=== PATIENT | male | born 1980 | race Caucasian/White ===

== ENCOUNTER → 2016-12-12 | Day surgery (SDC) | payer OTHER ==
[~2016-12-12] VITALS: Ht 185.4 cm; Wt 75.2 kg
[~2016-12-12] MED LIST: ACETAMINOPHEN 500 MG CPLT PO PRN; AMPHOTERICIN B I-OCULAR ONE; ATRO1SOL11 RIGHT EYE; ATROPINE SULFATE 1% OPHT SOLN 2 ML BTL ONE; BALANCED SALT SOLN OPHT IRRIG 15 ML BTL ONE; CHLORHEXIDINE GLUCONATE 2 % 1 PACK (2 CLOTHS) TOPICAL PRN; DEXAMETHASONE SOD PHOS 4 MG/ML VIAL ONE; DIFL200T PO; DO NOT ADM ANY ANTICOAGULANT DRUGS PRN; EPINEPHrine HCL (1:1000) 1 MG/ML VIAL ONE; FAMOTIDINE 20 MG/2 ML VIAL ONE; INSULIN HUMAN REGULAR 1,000 UNITS/10 ML VIAL SQ PRN; LACTATED RINGER'S 1000 ML IV PRN; METOPROLOL TARTRATE 25 MG TAB PO PRN; MIDAZOLAM HCL 2 MG/2 ML VIAL ONE; ONDANSETRON HCL 4 MG/2 ML VIAL IM PRN; ONDANSETRON HCL 4 MG/2 ML VIAL IV PUSH ONE; POVIDONE IODINE 5% (ANTISEPSIS KIT) 4 APPLICATIONS EACH NARE PRN; PROPOFOL 200 MG/20 ML AMP IV ONE; SODIUM CHLORID 0.9% 500 ML IV PRN; STERILE WATER FOR INJ 20 ML VIAL ONE; TOBRAMYCIN/DEXAMETHASONE OPTH OINT 3.5 GM TUBE ONE; TRIAMCINOLONE ACETONIDE/PF 40 MG/ML OPTH VIAL ONE; TROPICAMIDE 1% OPHT SOLN 15 ML BTL ONE; [UNRECOGNIZED DRUG - OTHER] I-OCULAR ONE; ceFAZolin INJ 1,000 MG VIAL ONE; fentaNYL CITRATE 250 MCG/5 ML AMP ONE; oxyCODONE/ACETAMINOPHEN 5 MG/325 MG TAB PO PRN
[2016-12-12 08:30] VITALS: BP 154/96; PULSE 68; RESP 18; TEMP 98.3; O2SAT 99
[2016-12-12] MEDS: TROPICAMIDE 1% OPTH SOLN 2 ML BTL RIGHT EYE SCH ×4 (09:00→09:40)
[2016-12-12] MEDS: PHENYLEPHRINE HCL 2.5% OPTH SOLN 2 ML BTL RIGHT EYE SCH ×3 (09:10→09:40)
[2016-12-12] MEDS: CYCLOPENTOLATE HCL 1% OPHT SOLN 2 ML BTL RIGHT EYE SCH ×3 (09:10→09:40)
[2016-12-12] MEDS: ATROPINE SULFATE 1% OPHT SOLN 5 ML BTL RIGHT EYE SCH ×3 (09:10→09:40)
[2016-12-12 13:39] VITALS: BP 142/86; PULSE 72; RESP 16; TEMP 98.5; O2SAT 99
--- NOTE | 2016-12-13 20:37 | MP ---
cc: TING MACARIO M.D. DATE OF SURGERY: 12/12/2016. 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 OPERATIVE PROCEDURE PERFORMED: A trans pars plana vitrectomy with injection of amphotericin B, right eye. SURGEON: Ting Macario MD. ANESTHESIA: General laryngeal mask anesthesia. INDICATIONS FOR THE PROCEDURE: Mr. Briceño is a 36-year-old gentleman with an approximately one month history of increasing floaters and decreasing vision in his right eye. He was seen back on November 09 for initial evaluation and there was an exudate noted in his macula as well as vitreous cells. There was no diagnostic look to his pictures so he was asked to return in a week to see what the progression was. He did not return until December 09 at which time his vision had dropped in the right eye to 20/100 -J16. He was now found to have two areas of exudate as well as whitish colored puffy-looking balls in his vitreous and some mild injection of the eye. This infectious process had been slow in onset and with the now look of the fundus, it was presumed that this was an endogenous fungal infection. He was placed on Sporanox orally and plans were made to bring him in today to the OR for the vitrectomy and culture as well as injection of amphotericin B. The risks and benefits of surgery were discussed with the patient and he wished to proceed. Informed consent was obtained for a vitrectomy. No guarantee was made as to visual outcome. DESCRIPTION OF THE PROCEDURE IN DETAIL: He was brought to [facility] Operating Room #1 and placed on the operating table. Appropriate anesthesia monitoring devices were applied. He was placed under general anesthesia using a laryngeal mask. The right eye was identified as the operative site and prepped and draped in the usual sterile fashion. A lid speculum was placed and the microscope was brought around and adjusted. At this time an appropriate time-out was called with the surgical team agreeing to the surgical site and proposed procedure. The eye was entered with the trocar cannulas of a 23-gauge vitrectomy set, first at approximately the nine o'clock position and verified to be in the posterior chamber. An infusion cannula was affixed to it was turned on. Two additional trocar cannulas were placed at ten and two o'clock. The pupil had not dilated as in the three days since I had seen the patient it had formed synechiae; therefore, using an MVR blade two small incisions were made through the cornea to allow the placement of iris retractors. The iris was then stretched superiorly allowing enough to complete the case. Using both the wide-angle viewing system and the flat contact lens, a vitrectomy was carried out and fluid was sent to the lab for microbiology for culture and Gram stain. As much as the exudate in the vitreous in the form of puffy round exudates were removed as possible, there was also a layer of fibrin over the retina and this also was removed as much as possible and as safely as possible and it could not all be removed safely. The fundus was inspected. No retinal breaks were noted. The iris retractors were removed and the MVR incision at eleven o'clock was closed with a single 10-0 nylon suture. The trocar cannulas were removed one by one then with tamponade of the site with a cotton swab and diathermy to the overlying conjunctival wound. The last to be removed was the infusion cannula and then injection of amphotericin B 0.005 milligrams in 0.1 cc was injected into the vitreous cavity. Atropine drops were placed on the cornea followed by subconjunctival injections of Ancef 125 mg in 0.5 cc and Decadron 2 mg in 0.5 cc The lid speculum was removed. The patient was undraped. TobraDex ointment was placed on the cornea and then the right eye was patched and shielded. The patient had the laryngeal mass removed in the room was returned recovery in good condition. MD JAYDEN Locke/DINA /2:35 PM /8:28 PM
== END | disposition home or self-care (01) ==
LOC: HSDC 07:34
PROVIDERS: ATTEND Ophthalmology
DX: H44.001 Unspecified purulent endophthalmitis, right eye (principal); H43.11 Vitreous hemorrhage, right eye
CPT/HCPCS: 00145; 67036; 87070; 87102; 87106; 87205; 87206; J0171; J0690; J1100; J2250; J2405; J3010; 87186; J3300

== ENCOUNTER 2016-12-16 15:59 | Inpatient (IN) | payer OTHER ==
[~2016-12-16] VITALS: Ht 185.4 cm; Wt 80.0 kg
[2016-12-16 16:01] VITALS: BP 170/100; PULSE 92; RESP 20; TEMP 98.6; O2SAT 100
--- NOTE | 2016-12-16 17:13 | PD ---
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 Stern of infectious disease to be admitted for IV antibiotics and further workup. 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 Awake and oriented 3. SKIN: Focused skin assessment warm/dry. HEAD: Atraumatic. Normocephalic. EYES: Pupils equal and round. No scleral icterus. Significant right conjunctival erythema. ENT: No nasal bleeding or discharge. Mucous membranes pink and moist. NECK: Trachea midline. No JVD. CARDIOVASCULAR: Regular rate and rhythm. No murmur appreciated. RESPIRATORY: No accessory muscle use. Clear to auscultation. Breath sounds equal bilaterally. GASTROINTESTINAL: Abdomen soft, non-tender, nondistended. Hepatic and splenic margins not palpable. MUSCULOSKELETAL: No obvious deformities. No clubbing. No cyanosis. No edema. NEUROLOGICAL: Awake and alert. No obvious cranial nerve deficits. Motor grossly within normal limits. Normal speech. PSYCHIATRIC: Appropriate mood and affect; insight and judgment normal. Data Data Last Documented VS Vital Signs Date Time Temp Pulse Resp B/P Pulse Ox O2 Delivery O2 Flow Rate FiO2 12/16/16 16:01 98.6 92 20 170/100 100 Room Air Orders Complete Blood Count With Diff (12/16/16 17:01) Comprehensive Metabolic Panel (12/16/16 17:) Lactic Acid Sepsis Protocol (12/16/16 17:) Blood Culture (12/16/16 17:) Blood Glucose (12/16/16:) Ecg Monitoring (12/16/16:) Iv Access Insert/Monitor (12/16/16:) Oximetry (12/16/16:) Oxygen Administration (12/16/16 17:) Blood Fungus Culture Routine (12/16/16 17:) Fluconazole 400 Mg Premix Bag (Diflucan (12/16/16 18:00) Admit Order (Ed Use Only) (12/16/16 17:23) MDM Medical Decision Making Medical Screen Exam Complete: Yes Emergency Medical Condition: Yes Medical Record Reviewed: Yes Differential Diagnosis Right endophthalmitis/rule out fungal sepsis Narrative Course IV Diflucan was initiated in the ER after cultures were drawn. Case is discussed with Dr. Hernandes for admission. Diagnosis Primary Impression: Endophthalmitis, right Admitting Information Admitting Physician Requests: Admit Scripts No Active Prescriptions or Reported Meds Carlos Lucas MD December 16, 2016 17:13
[2016-12-16] MEDS ORDERED: FLUCONAZOLE 400 MG PREMIX BAG 400 ML IV ONE (17:15)
[2016-12-16] MEDS: FLUCONAZOLE 400 MG PREMIX BAG 200 ML IV SCH ×2 (17:39→20:26)
[2016-12-16] MEDS ORDERED: ONDANSETRON HCL 4 MG/2 ML VIAL IVP PRN ×2 (17:45)
[2016-12-16] MEDS ORDERED: BISACODYL 10 MG SUPP RECTAL PRN (17:45)
[2016-12-16] MEDS ORDERED: ACETAMINOPHEN 325 MG TAB PO PRN ×2 (17:45)
[2016-12-16] MEDS ORDERED: MAGNESIUM HYDROXIDE SUSP 30 ML CUP PO PRN (17:45)
[2016-12-16] MEDS ORDERED: NALOXONE HCL 0.4 MG/ML AMP IV PRN ×2 (17:45)
[2016-12-16] MEDS ORDERED: SODIUM CHLORIDE 0.9% FLUSH 10 ML FLUSH IV FLUSH PRN ×2 (17:45)
[2016-12-16] MEDS ORDERED: SODIUM CHLOR 0.45% 1000 ML INJ 1,000 ML IV SCH (18:00)
[2016-12-16 18:05] LABS: BASOPHIL % 0.3 % (0.0-2.0); EOSINOPHIL # 0.1 TH/MM3 (0-0.4); EOSINOPHIL % 1.2 % (0.0-4.0); HEMO FLAGS DIFF FINAL; LYMPH % 27.4 % (9.0-44.0); LYMPHOCYTE # 3.1 TH/MM3 (1.0-4.8); MEAN CELL VOLUME 92.6 FL (80.0-100.0); MEAN CORPUSCULAR HEMOGLOBIN 30.9 PG (27.0-34.0); MEAN CORPUSCULAR HGB CONC 33.3 % (32.0-36.0); MONO % 10.5 % (0.0-8.0); NEUT % 60.6 % (16.0-70.0); PLATELET COUNT 192 TH/MM3 (150-450); RED BLOOD COUNT 5.29 MIL/MM3 (4.50-5.90); RED CELL DISTRIBUTION WIDTH 12.7 % (11.6-17.2); WHITE BLOOD COUNT 11.5 TH/MM3 (4.0-11.0)
[2016-12-16 18:35] LABS: ALKALINE PHOSPHATASE 87 U/L (45-117); TOTAL BILIRUBIN ADULT 0.4 MG/DL (0.2-1.0)
[2016-12-16 18:38] VITALS: BP 155/88; PULSE 87; RESP 16; O2SAT 99
[2016-12-16 18:38] LABS: ALT (GPT) 26 U/L (12-78); ANION GAP 8 MEQ/L (5-15); AST (GOT) 20 U/L (15-37); BICARBONATE 24.5 MEQ/L (21.0-32.0); BLOOD UREA NITROGEN 8 MG/DL (7-18); CHLORIDE 108 MEQ/L (98-107); GLOMERULAR FILTRATION RATE 78 ML/MIN (>89); POTASSIUM 3.6 MEQ/L (3.5-5.1); SODIUM (NA) 140 MEQ/L (136-145)
[2016-12-16 19:43] LABS: LACTIC ACID GHOST NOT REPORTABLE
--- NOTE | 2016-12-16 19:57 | MH ---
cc: SANDI HERNANDES DATE OF ADMISSION 12/16/2016 DATE OF 1980 CHIEF COMPLAINT Postop ophthalmic surgery, right eye pain with infection. HISTORY OF THE PRESENT ILLNESS This is a pleasant 36-year-old white male who had been in his usual state of health up until approximately a month ago. The patient began having a cloudy sensation over his right eye which blurred his vision. This cloudiness continued to get worse as well as pain and the patient had ophthalmic surgery with Dr. Hernandez last . The patient went back for followup appointment today and fungal infection was noted in the cultures that were taken at the time of the surgery. The patient was called and instructed after leaving Dr. Hernandez's office to come to the hospital for further evaluation and admission for IV antibiotics. PAST MEDICAL HISTORY 1. Hypertension borderline. 2. Anxiety and depression. 3. Drug abuse and dependence. 4. Arthritis. PAST SURGICAL HISTORY Recent right eye ophthalmic surgery. ALLERGIES NONE KNOWN. MEDICATIONS None active except for what he has been taking postoperatively. This includes: 1. Vasodilators. 2. And antibiotic drops. SOCIAL HISTORY The patient is , currently lives at home with his . He is an occasional social beer drinker, sometimes once a week. Half a pack a day tobacco user. Has had substance abuse issues in the past which he states that he has been clean for a year and a half. His drug of choice has been marijuana and IV Dilaudid. REVIEW OF SYSTEMS A 12 point review was done. Positives noted are right eye redness with erythema and pain. Positive for fungal infection. Positive for hypertension. Otherwise systems negative or unremarkable. PHYSICAL EXAMINATION VITAL SIGNS: Temperature is 98.6, pulse 92, respiratory rate 20, blood pressure 170/100, O2 saturation 100% on room air. GENERAL: Well-nourished, slim, white male looks to be his stated age resting in the bed. He does have some sensitivity to light in his right eye. He is alert and oriented and a good historian. SKIN: [place], warm and dry. He does have some abrasions or small lesions on his right forearm that are scabbed over. HEENT: Atraumatic, normocephalic. Pupils show 5 mm on the right eye, reacts to light. The left eye is 3 mm, reacts to light. He does have a moderate amount of erythema in the right eye. No scleral icterus. Mucous membranes are pink and moist. NECK: Supple. CARDIOVASCULAR: Regular rate and rhythm. No murmurs, rubs, or gallops. He has no edema and his pulses are intact. RESPIRATORY: Lungs are essentially clear anteriorly and posteriorly. No wheezes, rhonchi or rales. MUSCULOSKELETAL: Moves his extremities with purpose. No clubbing. No cyanosis. No edema. NEUROLOGIC: He is alert, responses well to conversation and questions. He is a good historian. Speech is clear and normal. PSYCHIATRIC: Appropriate mood and affect. Insight and judgment are normal. LABORATORY DATA Diagnostic data, WBC count 11.5, RBC 5.29, hemoglobin 16.3, hematocrit 49, platelet count is 192. Monocyte percentage 10.5. Lactic acid is 2.9. Chemistry labs are pending. IMAGING Imaging studies are none. ASSESSMENT AND PLAN 1. Endophthalmitis right eye. 2. Lactic acid sepsis with leukocytosis. 3. Hypertension, uncontrolled. 4. History of IV drug dependence. Our plan is to admit for IV antibiotics therapy. The patient is currently on IV fluconazole. We will consult infectious disease for their expert opinion in managing this course of treatment. DVT prophylaxis with heparin. Peptic ulcer disease prophylaxis with Pepcid. We will do bowel regimen with Milk of Magnesia as needed and stool softeners if needed. The patient has Tylenol for temperature greater than 100.4. IV fluids at 100 cc an hour for hydration. The patient will be admitted inpatient status. We will monitor his vital signs q.4h and more often if the patient requires. Medication for blood pressure. The patient can have Vasotec 1.25 milligrams IV q.4h as needed for blood pressure greater than 170 or greater than 100 diastolic. Sequential compression devices. The patient is full code, full aggressive care and we will follow. Dictated by: MEME Nogueira Sandi Hernandes MD JP/RANDY /6:33 PM /7:31 PM pt's evaluation was done on day of exam chart was reviwed plan of care was nghia agrawal ER physician TOMA
[2016-12-16 20:00] VITALS: BP 148/97; PULSE 67; RESP 20; TEMP 98.6; O2SAT 99
[2016-12-16] MEDS: HEPARIN SODIUM - SQ 10,000 UNITS/ML VIAL SQ SCH (20:00)
[2016-12-16] MEDS: SODIUM CHLOR 0.9% 1000 ML INJ 1,000 ML IV SCH (20:24)
[2016-12-16] MEDS: SODIUM CHLORIDE 0.9% FLUSH 10 ML FLUSH IV FLUSH SCH (20:25)
[2016-12-17] VITALS: BP_SYST 87; PULSE 70; RESP 20; TEMP 97.4; O2SAT 98
[2016-12-17] MEDS: SODIUM CHLOR 0.9% 1000 ML INJ 1,000 ML IV SCH ×2 (04:00→14:00)
[2016-12-17 04:36] LABS: AUTOMATED NEUTROPHIL # 4.3 TH/MM3 (1.8-7.7); BASOPHIL % 0.3 % (0.0-2.0); EOSINOPHIL # 0.2 TH/MM3 (0-0.4); EOSINOPHIL % 2.4 % (0.0-4.0); HEMATOCRIT 46.2 % (39.0-51.0); HEMO FLAGS DIFF FINAL; LYMPH % 39.1 % (9.0-44.0); LYMPHOCYTE # 3.5 TH/MM3 (1.0-4.8); MEAN CELL VOLUME 92.1 FL (80.0-100.0); MEAN CORPUSCULAR HGB CONC 33.7 % (32.0-36.0); MONO % 9.5 % (0.0-8.0); NEUT % 48.7 % (16.0-70.0); PLATELET COUNT 188 TH/MM3 (150-450); RED BLOOD COUNT 5.02 MIL/MM3 (4.50-5.90); RED CELL DISTRIBUTION WIDTH 12.8 % (11.6-17.2); WHITE BLOOD COUNT 8.9 TH/MM3 (4.0-11.0)
[2016-12-17 05:04] LABS: BICARBONATE 29.5 MEQ/L (21.0-32.0); POTASSIUM 4.1 MEQ/L (3.5-5.1)
[2016-12-17] MEDS: SODIUM CHLORIDE 0.9% FLUSH 10 ML FLUSH IV FLUSH SCH (07:49)
[2016-12-17] MEDS: HEPARIN SODIUM - SQ 10,000 UNITS/ML VIAL SQ SCH (07:50)
[2016-12-17 08:00] VITALS: BP 134/88; PULSE 67; RESP 18; TEMP 97.1; O2SAT 100
[2016-12-17] MEDS ORDERED: INFLUENZA VIRUS VACCINE (QUADRIVALENT) 0.5 ML SYR IM ONE (10:00)
[2016-12-17] MEDS ORDERED: PNEUMOCOCCAL POLYVALENT INJ 25 MCG/0.5 ML SYR IM ONE (10:00)
[2016-12-17 12:00] VITALS: BP 130/87; PULSE 73; RESP 18; TEMP 98.3; O2SAT 99
--- NOTE | 2016-12-17 12:37 | PD.ID.CON ---
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 [employer]BICANS Pt states his eyesight is about the same, maybe getting a little better as the day goes He got Amphotheriin B injection as well He denies fever, chills, night sweats, weighloss or chest pain hemoptysis No back pain On admission afebrile, with borderline WBC and mildly elevated Lactic acid ( lactic acidemia resolved) 2 blood clx on admission negative @ 1 day Pt reports negative HIV test about 1 yr ago Review of Systems Eyes: COMPLAINS OF: Blurred vision, Eye inflammation, Eye pain, Vision loss Except as stated in HPI: all other systems reviewed are Neg Past Family Social History Allergies: Coded Allergies: No Known Allergies (Unverified , 12/16/16) Past Medical History HTN anxiety Past Surgical History R vitrectomy Active Ordered Medications Medications where reviewed in EMR Antibiotics Include: Fluconazol 800 x 1 Fluc IV 400 Family History Adopted Non-Contributory. Social History + Tobacco. No ETOH. No IV Drugs. + MJ Physical Exam Vital Signs Vital Signs Date Time Temp Pulse Resp B/P Pulse Ox O2 Delivery O2 Flow Rate FiO2 12/17/16 08:00 97.1 67 18 134/88 100 12/17/16 00:00 97.4 70 20 87/ 98 12/16/16 20:00 98.6 67 20 148/97 99 12/16/16 18:38 87 16 155/88 99 Room Air 12/16/16 18:00 99 Room Air 12/16/16 16:01 98.6 92 20 170/100 100 Room Air Physical Exam CONSTITUTIONAL/GENERAL: This is an adequately nourished patient, in no apparent distress. TUBES/LINES/DRAINS: SKIN: No jaundice, rashes,Multiple scattered crusted lesions in different sstages of healing primarily on BUE and chest/stomach. Skin temperature appropriate. Not diaphoretic. HEAD: Atraumatic. Normocephalic. EYES: No scleral icterus. Fundi not examined. OS - unremarkable OD with substantial conjunctival edema, erythema EOMI ENT: Hearing grossly normal. Nose without bleeding or purulent drainage. Throat without visible erythema, exudates, masses, or lesions. NECK: Trachea midline. Supple, nontender. CARDIOVASCULAR: Regular rate and rhythm without murmurs, gallops, or rubs. No JVD. Peripheral pulses symmetric. RESPIRATORY/CHEST: Symmetric, unlabored respirations. Clear to auscultation. Breath sounds equal bilaterally. No wheezes, rales, or rhonchi. GASTROINTESTINAL: Abdomen soft, non-tender, nondistended. No hepato-splenomegaly , or palpable masses. No guarding. Bowel sounds present. BACK: not tender to palpation GENITOURINARY: Without palpable bladder distension. MUSCULOSKELETAL: Extremities without clubbing, cyanosis, or edema. No joint tenderness or effusion noted. No calf tenderness. No mottling or clubbing. LYMPHATICS: No palpable cervical or supraclavicular adenopathy. NEUROLOGICAL: Awake and alert. Motor and sensory grossly within normal limits. Follows commands. Cognitively sharp. Normal speech Moves all extremities. PSYCHIATRIC: No obvious anxiety/depression. no apparent hallucinations or other psychotic thought process. Laboratory Laboratory Tests Test 12/16/16 12/16/16 12/17/16 17:15 17:30 04:12 White Blood Count 11.5 8.9 Red Blood Count 5.29 5.02 Hemoglobin 16.3 15.6 Hematocrit 49.0 46.2 Mean Corpuscular Volume 92.6 92.1 Mean Corpuscular Hemoglobin 30.9 31.0 Mean Corpuscular Hemoglobin 33.3 33.7 Concent Red Cell Distribution Width 12.7 12.8 Platelet Count 192 188 Mean Platelet Volume 8.8 8.4 Neutrophils (%) (Auto) 60.6 48.7 Lymphocytes (%) (Auto) 27.4 39.1 Monocytes (%) (Auto) 10.5 9.5 Eosinophils (%) (Auto) 1.2 2.4 Basophils (%) (Auto) 0.3 0.3 Neutrophils # (Auto) 7.0 4.3 Lymphocytes # (Auto) 3.1 3.5 Monocytes # (Auto) 1.2 0.8 Eosinophils # (Auto) 0.1 0.2 Basophils # (Auto) 0.0 0.0 CBC Comment DIFF FINAL DIFF FINAL Differential Comment Sodium Level 140 141 Potassium Level 3.6 4.1 Chloride Level 108 107 Carbon Dioxide Level 24.5 29.5 Anion Gap 8 5 Blood Urea Nitrogen 8 10 Creatinine 1.06 1.13 Estimat Glomerular Filtration 78 73 Rate Random Glucose 104 93 Calcium Level 9.2 8.8 Total Bilirubin 0.4 Aspartate Amino Transf 20 (AST/SGOT) Alanine Aminotransferase 26 (ALT/SGPT) Alkaline Phosphatase 87 Total Protein 7.5 Albumin 3.8 Lactic Acid Level 2.9 1.1 Date/Time Procedure Status Source Growth 12/17/16 04:12 Blood Fungal Culture Received Blood Peripheral Pending 12/17/16 04:12 Blood Fungal Culture Received Blood Peripheral Pending 12/16/16 17:30 Aerobic Blood Culture - Preliminary Resulted Blood Peripheral NO GROWTH IN 1 DAY 12/16/16 17:30 Anaerobic Blood Culture - Preliminary Resulted Blood Peripheral NO GROWTH IN 1 DAY Result Diagram: 12/17/16 0412 12/17/16 0412 Assessment and Plan Assessment and Plan Endogenous Candidal endophthalmitis, C.albican OD - risk factor - prior IVDU - sp vitrectomy - sp intraocular AMB injection No clinical sings of symtoms sugg of endocvascular infx - cont fluconazole 600 mg daily PO x 4-6 weeks , though duration eventually decided per ophthalmological exams - monitor CBC, LFTs while on tx - chk hepatitis profile - fu with Dr Cullen [phone] - fu with Dr Hernandez s for serial dilated ophthalmic examinations are necessary to help determine the ultimate duration of therapy - OK to dc home today Discussed Condition With Dr Eugene revenue liaison Planning Dc home today with PO fluconazole Amaris Clemente MD December 17, 2016 12:36
--- NOTE | 2016-12-17 12:38 | HHI.PR ---
Subjective Remarks Resting in bed Calm, alert and oriented Right eye erythema, no acute changes Appetite good Afebrile Objective Objective Results - Vital Signs Date Time Temp Pulse Resp B/P Pulse Ox O2 Delivery O2 Flow Rate FiO2 12/17/16 12:00 98.3 73 18 130/87 99 12/17/16 08:00 97.1 67 18 134/88 100 12/17/16 00:00 97.4 70 20 87/ 98 12/16/16 20:00 98.6 67 20 148/97 99 12/16/16 18:38 87 16 155/88 99 Room Air 12/16/16 18:00 99 Room Air 12/16/16 16:01 98.6 92 20 170/100 100 Room Air I/O 12/16/16 12/16/16 12/16/16 12/17/16 12/17/16 12/17/16 06:59 14:59 22:59 06:59 14:59 22:59 Intake Total 326 ml 1187 ml Output Total 800 ml Balance 326 ml 387 ml Intake Oral 440 ml IV Total 326 ml 747 ml Output Urine Total 800 ml # Bowel Movements 0 Result Diagram: 12/17/1641112/17/16411 ROS General: Other (HTN, controlled today. 10 point ROS done, positives noted which will include a bowel regimen other systems negative or unremarkable) HEENT: Other (rt. eye erythema) Physical Exam Physical Exam PHYSICAL EXAMINATION GENERAL: This is a well-developed, well-nourished male who appears to be in no acute distress. He is alert and awake HEAD: Normocephalic right eye with erythema, vision still blurry at times OROPHARYNGEAL: Oropharynx without erythema or edema. NECK: Supple. No nuchal rigidity or lymphadenopathy. Trachea midline without deviation. CARDIAC: Regular rhythm, regular rate, S1 and S2 are heard. LUNGS: Clear to auscultation bilaterally ABDOMEN: Soft, nontender, no organomegaly or masses. Bowel sounds are heard in all four quadrants. EXTREMITIES: no edema. Moves all extremities with purpose NEUROLOGICAL: Patient mood and affect appropriate. No focal deficit SKIN:Warm and moist Objective Remarks I really need to get home and get back to work A/P Assessment and Plan 1. Endophthalmitis right eye. 2. Lactic acid sepsis with leukocytosis. 3. Hypertension, uncontrolled. 4. History of IV drug dependence. Vital signs reviewed, normal ranges which includes blood pressure. This was elevated on admission Labs reviewed, normal trends, no leukocytosis noted Endogenous Candidal Endophthalmitis right eye, IV antibiotic therapy initiated ID consult , no signs of indigo vascular infection Patient can be safely discharged on, fluconazole 600 mg by mouth 4-6 weeks daily Patient will need monitoring of labs as an outpatient with Dr. Hernandez's fu with Dr Cullen [phone] Discharge planning today on by mouth antibiotics. Patient will also follow-up with Dr. Hernandez's Appreciate Dr. Clemente and her plan of care. DVT prophylaxis PUD prophylaxis Bowel regimen Lucero Vo December 17, 2016 12:38
[2016-12-17] MEDS ORDERED: DIFL200T PO (12:39)
--- NOTE | 2016-12-17 13:27 | HHI.IDPN ---
Note Infectious Disease Note ID consult initially given to me by service Spoke with Dr Hansa Clemente this morning She had spoken with sql programmer yesterday and has give initial recommendation She will do full ID consultation today I have spoken with [facility] and they will do susceptibility testing on Carmen albicans D/W Lina Waggoner MD, MD December 17, 2016 13:27
[2016-12-17] MEDS ORDERED: FLUCONAZOLE 400 MG PREMIX BAG 200 ML IV SCH (18:00)
[2016-12-17] MEDS ORDERED: FLUCONAZOLE 200 MG TAB PO SCH (20:00)
== END 2016-12-17 14:55 | disposition home or self-care (01) | DRG 121 ==
LOC: NEPE 15:59 → NEDA 17:25 → N07A 21:50
PROVIDERS: ADMIT Specialist; ATTEND Specialist
DX: H44.19 Other endophthalmitis (principal); B37.89 Other sites of candidiasis; E87.2 Acidosis; I10 Essential (primary) hypertension; F32.9 Major depressive disorder, single episode, unspecified; F41.9 Anxiety disorder, unspecified; F17.210 Nicotine dependence, cigarettes, uncomplicated; M19.90 Unspecified osteoarthritis, unspecified site; H53.8 Other visual disturbances; H57.11 Ocular pain, right eye
CPT/HCPCS: 80048; 80053; 83605; 85025; 87040; 87103; 99285; J1450; J7030

== ENCOUNTER 2016-12-24 12:26 | Emergency (ER) | payer OTHER ==
[~2016-12-24] VITALS: Ht 185.4 cm; Wt 77.0 kg
[~2016-12-24 12:26] MED LIST changes: -ACETAMINOPHEN 500 MG CPLT PO PRN; -AMPHOTERICIN B I-OCULAR ONE; -ATRO1SOL11 RIGHT EYE; -ATROPINE SULFATE 1% OPHT SOLN 2 ML BTL ONE; -BALANCED SALT SOLN OPHT IRRIG 15 ML BTL ONE; -CHLORHEXIDINE GLUCONATE 2 % 1 PACK (2 CLOTHS) TOPICAL PRN; -DEXAMETHASONE SOD PHOS 4 MG/ML VIAL ONE; -DO NOT ADM ANY ANTICOAGULANT DRUGS PRN; -EPINEPHrine HCL (1:1000) 1 MG/ML VIAL ONE; -FAMOTIDINE 20 MG/2 ML VIAL ONE; -INSULIN HUMAN REGULAR 1,000 UNITS/10 ML VIAL SQ PRN; -LACTATED RINGER'S 1000 ML IV PRN; -METOPROLOL TARTRATE 25 MG TAB PO PRN; -MIDAZOLAM HCL 2 MG/2 ML VIAL ONE; -ONDANSETRON HCL 4 MG/2 ML VIAL IM PRN; -ONDANSETRON HCL 4 MG/2 ML VIAL IV PUSH ONE; -POVIDONE IODINE 5% (ANTISEPSIS KIT) 4 APPLICATIONS EACH NARE PRN; -PROPOFOL 200 MG/20 ML AMP IV ONE; -SODIUM CHLORID 0.9% 500 ML IV PRN; -STERILE WATER FOR INJ 20 ML VIAL ONE; -TOBRAMYCIN/DEXAMETHASONE OPTH OINT 3.5 GM TUBE ONE; -TRIAMCINOLONE ACETONIDE/PF 40 MG/ML OPTH VIAL ONE; -TROPICAMIDE 1% OPHT SOLN 15 ML BTL ONE; -[UNRECOGNIZED DRUG - OTHER] I-OCULAR ONE; -ceFAZolin INJ 1,000 MG VIAL ONE; -fentaNYL CITRATE 250 MCG/5 ML AMP ONE; -oxyCODONE/ACETAMINOPHEN 5 MG/325 MG TAB PO PRN
[2016-12-24] MEDS ORDERED: ATRO1SOL11 RIGHT EYE (12:41)
[2016-12-24] MEDS ORDERED: VORICONAZOLE I-OCULAR ONE (12:45)
--- NOTE | 2016-12-24 12:50 | PD ---
HPI Chief Complaint: Eye Problems/Injury Time Seen by Provider: 12:50 Travel History International Travel<30 days: No Contact w/Intl Traveler<30days: No Traveled to known affect area: No History of Present Illness HPI 36-year-old male presents to the emergency department at the instruction of his campus manager for evaluation of right eye infection. The patient states that he has an infection in his right eye with worsening vision and 2 weeks ago had a vitrectomy performed by campus manager Dr. Hernandez to clean out the infection. States that after the surgery he was not improving and he was then admitted to our hospital to see an infectious disease specialist and have cultures performed. States that he had a follow-up with Dr. Garner yesterday and received an intravitreal injection of amphotericin B. States that last night he had pain in the eye and today has had worsening vision in the eye. States that he saw her in office this morning and was told that his cultures showed that the medication he has been on is not sensitive to be fungal infection in his eye. She sent him here today to receive an intravitreal injection of an antifungal medication. He denies any fever, chills, nausea, vomiting, cough or cold symptoms. No other complaints. PFSH Past Medical History Anxiety: Yes Depression: Yes Cancer: No Cardiovascular Problems: No Diabetes: No Diminished Hearing: No Endocrine: No Genitourinary: No Hepatitis: No Hiatal Hernia: No Immune Disorder: No Musculoskeletal: No Neurologic: No Psychiatric: No Reproductive: No Respiratory: No Thyroid Disease: No Tetanus Vaccination: < 5 Years Influenza Vaccination: Yes Past Surgical History AICD: No Eye Surgery: Yes (eye surgery performed on 12/05/16) Joint Replacement: No Pacemaker: No Other Surgery: Yes Social History Alcohol Use: Yes (OCCASIONALLY) Tobacco Use: Yes (1/2 PPD) Substance Use: Yes (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 SKIN: Warm and dry. HEAD: Normocephalic and atraumatic. EYES: Right eye with injection, right pupil is dilated secondary to examination and campus manager's office this morning. Left eye within normal limits. No drainage or hyphema noted. PERRLA. EOMI. ENT: No nasal drainage noted. Oropharynx is clear. NECK: Supple and the trachea is midline. CARDIOVASCULAR: Regular rate and rhythm. RESPIRATORY: Breath sounds are equal bilaterally with no accessory muscle use, wheezing, rhonchi, or crackles. GASTROINTESTINAL: Abdomen is soft, non-tender, and nondistended. MUSCULOSKELETAL: No obvious deformities, swelling, cyanosis, or ecchymosis is present throughout the upper and lower extremities. Patient has full range of motion without any signs of neurovascular compromise. NEUROLOGICAL: Awake, alert, and oriented. Normal speech and gait. Cranial nerves are grossly intact. Data Data Last Documented VS Vital Signs Date Time Temp Pulse Resp B/P Pulse Ox O2 Delivery O2 Flow Rate FiO2 12/24/16 12:40 18 Orders Non-Formulary Drug (12/24/16 12:45) MDM Medical Decision Making Medical Screen Exam Complete: Yes Emergency Medical Condition: Yes Differential Diagnosis Endophthalmitis versus fungal versus bacterial versus other Narrative Course 36-year-old male presents to the emergency department for evaluation of fungal endophthalmitis. He was sent here by his campus manager so that he could receive an intravitreal injection that is carried only at the hospital. I did call the campus manager office and they have already placed the order for the medication and once the medication is at bedside she will, and administer this medication. Once the medication as been administered the patient can be discharged to follow-up as an outpatient with his campus manager and infectious disease specialist. I discussed the case with my attending physician Dr. Wynne who is aware of the patients history, physical examination findings, and treatment plan. Diagnosis Primary Impression: Endophthalmitis, right Referrals: Infectious Disease Specialist [employer] Assembly Supervisor Additional Instructions: Follow-up as an outpatient with your campus manager and infectious disease specialist. Med/Other Pt SpecificInfo: No Change to Meds Disposition: 01 DISCHARGE HOME Condition: Stable Shannon Del Cid December 24, 2016 12:50
--- NOTE | 2016-12-24 14:10 | PD ---
Data Data Last Documented VS Vital Signs Date Time Temp Pulse Resp B/P Pulse Ox O2 Delivery O2 Flow Rate FiO2 12/24/16 12:40 18 Orders Non-Formulary Drug (12/24/16 12:45) MDM Supervised Visit with SALOMÓN: Yes Narrative Course I, Dr. Wynne, have reviewed the advance practice practioner's documentation and am in agreement, met with the patient face to face, made the diagnosis, and the medical decision making was done by me. *My assessment and Findings: 36-year-old male with history of right eye and up to is followed by ride assembly supervisor Dr. Hernandez, he is grown out fungal infection that is sensitive only to for econazole, fluconazole unfortunately we are unable to get these medications as an outpatient. Voriconazole was ordered and patient was sent here to have the injection performed by Dr. Garner in the emergency department. This was ordered by Dr. Garner, and sent on to the ER. She saw patient in the emergency department and performed intraocular injection. Plans to follow-up with infectious disease in 2 days, and Dr. Hernandez tomorrow as an outpatient. Diagnosis Primary Impression: Endophthalmitis, right Referrals: Ting Hernandez MD (PCP) call for appointment Infectious Disease Specialist Flash Welding Machine Operator Patient Instructions: General Instructions, Blurred Vision (ED) Departure Forms: Tests/Procedures Additional Instruction: Follow-up as an outpatient with your ride assembly supervisor and infectious disease specialist. Disposition: 01 DISCHARGE HOME Condition: Stable Rossana Wynne MD December 24, 2016 14:10
== END 2016-12-24 14:00 | disposition home or self-care (01) ==
LOC: NEPD 12:26
DX: H44.001 Unspecified purulent endophthalmitis, right eye (principal); F11.10 Opioid abuse, uncomplicated; F17.210 Nicotine dependence, cigarettes, uncomplicated
CPT/HCPCS: 67028